=== PATIENT | male | born 1950 ===

== ENCOUNTER 2024-06-17 12:46 | Outpatient (REF) | payer MEDICARE, SELFPAY ==
[2024-06-17 21:24] LABS: HCT 43.4 % (40.0-50.0); HGB 14.9 g/dL (13.5-17.5); MCH 31.2 pg (27.0-33.0); MCHC 34.3 % (32.0-36.0); MCV 91 fL (80-95); MPV 9.5 fL (8.0-11.0); Platelet Count 213 10^3/uL (130-400); RBC 4.77 10^6/uL (4.36-5.78); RDW 13.2 % (11.8-14.1); RDW-SD 44.5 fL; WBC 5.99 10^3/uL (4.4-10.8)
[2024-06-17 21:44] LABS: ALT 32 U/L (16-63); AST 23 U/L (15-37); Albumin 4.3 g/dL (3.4-5.0); Alkaline Phosphatase 70 U/L (46-116); Anion Gap 9.6 mmol/L (3-11); BUN 22 mg/dL (7-18); Bilirubin, Total 1.8 mg/dL (0.2-1.0); CO2 27.4 mmol/L (21.0-32.0); CREATININE 0.9 mg/dL (0.70-1.30); Calcium 9.7 mg/dL (8.5-10.1); Calculated LDL 95 mg/dL (<100); Chloride 103 mmol/L (98-107); Cholesterol 222 mg/dL (<200); Estimated GFR 89.62 (mL/min/1.73m2); Glucose 106 mg/dL (74-106); HDL Cholesterol 119 mg/dL (>or=40); Sodium 140 mmol/L (136-145); Total Protein 7.7 g/dL (6.4-8.2); Triglyceride 43 mg/dL (<150)
[2024-06-17 21:57] LABS: Hemoglobin A1C 5.6 % (<5.7)
== END 2024-06-17 12:47 | disposition home or self-care (01) ==
LOC: NCHCN 12:46
PROVIDERS: Visit Provider Internal Medicine
DX: I10 Essential (primary) hypertension (principal); R73.01 Impaired fasting glucose; E78.00 Pure hypercholesterolemia, unspecified
CPT/HCPCS: 80053; 80061; 85027; 83036

== ENCOUNTER 2024-06-30 12:19 | Outpatient (REF) | payer MEDICARE, SELFPAY ==
[2024-06-30 14:33] LABS: ALT 30 U/L (16-63); AST 20 U/L (15-37); Albumin 3.9 g/dL (3.4-5.0); Alkaline Phosphatase 64 U/L (46-116); Bilirubin, Direct 0.3 mg/dL (0.0-0.2); Total Protein 7.1 g/dL (6.4-8.2)
== END 2024-06-30 12:20 | disposition home or self-care (01) ==
LOC: NCHCN 12:19
PROVIDERS: Visit Provider Internal Medicine
DX: R17 Unspecified jaundice (principal)
CPT/HCPCS: 80076